=== PATIENT | female | born 1990 | race Caucasian/White ===

== ENCOUNTER 2016-11-28 15:06 | Outpatient (CLI) | payer BC ==
--- NOTE | 2016-11-28 17:34 | DIAGNOSTIC IMAGING REPORT ---
PROCEDURE: US OB DETAILED ANATOMIC INDICATION: ANATOMY TECHNIQUE: Wallace scale, color, and spectral Doppler images of the second trimester gravid uterus were obtained. COMPARISON: None. FINDINGS: A single living intrauterine is in vertex presentation. There is regular cardiac activity at a rate of 153 beats per minute. The placenta is fundal and away from the internal cervical os. The cervix is closed measuring approximately 5 cm in length. The amniotic fluid volume is subjectively normal. Biparietal diameter 4.6 cm of 19 weeks and 5 days Head circumference 16.9 cm of 19 weeks and 4-day Abdominal circumference 13.6 cm of 19 weeks and 0-day Femur length 3.1 cm at 19 weeks and 4-day Head to abdominal circumference ratio and femur length to abdominal circumference ratios are normal. Estimated weight 287 g Composite gestational age 19 weeks and 3 days, LILIANA 04/21/2017 There was visualization of a number of normal structures including the intracranial contents, facial features, nuchal region, spine, four-chamber heart and outflow tracts to the extent that could be visualized, diaphragm, fluid-filled stomach, kidneys, abdomen, urinary bladder, upper and lower extremities, and genitals. A three-vessel umbilical cord, normal and placental cord insertion sites were seen. IMPRESSION: 1. Single living intrauterine with a composite gestational age of 9 weeks 3 days, LILIANA 04/21/2017. 2. Symmetric and normal anatomy. 3. Size less than dates by 6 days
== END 2016-11-28 23:00 ==
LOC: US SRH 15:06
DX: Z34.02 Encounter for supervision of normal first pregnancy, second trimester (principal); Z3A.19 19 weeks gestation of pregnancy

== ENCOUNTER 2017-01-11 15:48 | Outpatient (CLI) | payer BC, OTHER | END 2017-01-11 23:00 | LOC: LAB SRH 15:48 | DX: Z34.02 Encounter for supervision of normal first pregnancy, second trimester (principal) | CPT/HCPCS: 90039; 90074; 91162; 91163 ==

== ENCOUNTER 2017-01-31 08:08 | Outpatient (CLI) | payer BC, OTHER | END 2017-01-31 23:00 | LOC: LAB SRH 08:08 | DX: R73.02 Impaired glucose tolerance (oral) (principal) | CPT/HCPCS: 90074; 92652 ==

== ENCOUNTER 2017-03-29 06:59 | Inpatient (IN) | payer BC, OTHER ==
[2017-03-29] VITALS (8 sets, daily range): BP systolic 134–157; BP diastolic 72–105
[~2017-03-29] VITALS: Ht 162.6 cm; Wt 82.6 kg
[2017-03-30 01:30] VITALS: BP 135/66
[2017-03-30 07:50] VITALS: BP 139/90
--- NOTE | 2017-03-30 11:42 | Provider's Discharge Care Plan ---
Problem, Goal, Plan Problem List 1. Vaginal delivery Goals: Improve disease control Instructions: Follow up as needed
--- NOTE | 2017-03-30 11:42 | Provider's Discharge Care Plan ---
Problem, Goal, Plan Problem List 1. Vaginal delivery Goals: Improve disease control Instructions: Follow up as needed
--- NOTE | 2017-03-30 11:43 | Provider's Discharge Care Plan ---
Problem, Goal, Plan Problem List 1. induced hypertension Goals: Improve disease control Instructions: Follow up as needed
--- NOTE | 2017-03-30 11:43 | Provider's Discharge Care Plan ---
Problem, Goal, Plan Problem List 1. induced hypertension Goals: Improve disease control Instructions: Follow up as needed
--- NOTE | 2017-04-06 10:41 | DELIVERY SUMMARY ---
DELIVERY DATE: 03/29/2017 ATTENDING PHYSICIAN/PROVIDER: Yfn Brito MD HISTORY OF PRESENT ILLNESS: This is a 26-year-old 1, para 1, who presents with ruptured membranes with noted elevated blood pressure, in labor. The patient had PIH labs were obtained, which were normal. She had spontaneous labor with some assistance and had a very controlled vaginal delivery with no lacerations of a 4 pound 13 ounce baby. Her blood pressures in the office 2 days before delivery were normal and the fundal height was noted to be steady for the past 3 visits, approximately 34 cm. The patient had a normal delivery with a followup being remarkable for elevated blood pressures of 160/110. She had no particular visual disturbances, scotoma, blurred vision, spots in her eyes. She had no specific hyperreflexia, 2/2 DTRs. After 24 hours of evaluation, her blood pressure was elevated. The patient requested discharge home with baby. The patient was to have followup in 1 week, which she did, and still had elevated blood pressure, approximately 150s over 100. She was advised to continue her care and to be seen for continued sequela of potential hypertension, essential in nature versus related specifics of delivery with active management of third stage of labor. Intact placenta, 3-vessel cord. Minimal blood loss and rapid recovery.
== END 2017-03-30 13:00 | disposition home or self-care (01) | DRG 775 ==
LOC: OBC SRH 06:59 → OB SRH 07:03 → OBC SRH 07:25 → OB SRH 14:23
PROVIDERS: ADMIT Obstetrics & Gynecology
PROC: 10E0XZZ Delivery of Products of Conception, External Approach (ICD-10-PCS; principal; 2017-03-29)
PROC: 3E0234Z Introduction of Serum, Toxoid and Vaccine into Muscle, Percutaneous Approach (ICD-10-PCS; 2017-03-30)
DX: O16.4 Unspecified maternal hypertension, complicating childbirth (principal); Z37.0 Single live birth; Z3A.37 37 weeks gestation of pregnancy; Z23 Encounter for immunization
CPT/HCPCS: 29255; 83501; 90001; 90004; 90074; 90100; 90155; 91004; 91162; 91163; 92680; 92860; 94060; 95059